=== PATIENT | male | born 1940 | race Caucasian/White ===

== ENCOUNTER 2018-02-03 05:54 | Day surgery (SDC) | payer OTHER ==
[2018-02-03] MEDS ORDERED: LIDOCAINE 1% 2 ML INJ ONE (06:03)
[2018-02-03] MEDS ORDERED: ceFAZolin 2 GM/DEXTROSE 100 ML IV ONE (06:07)
[2018-02-03] MEDS ORDERED: LR 1,000 ML IV ONE (06:09)
[2018-02-03] MEDS ORDERED: LIDOCAINE 1% 2 ML INJ ID PRN (06:09)
[2018-02-03] MEDS ORDERED: ONDANSETRON 4 MG/2 ML VIAL ONE (06:30)
[2018-02-03] MEDS ORDERED: DEXAMETHASONE 4 MG/ML VIAL ONE (06:30)
[2018-02-03] MEDS ORDERED: LIDOCAINE 2% 100 MG/5 ML SYR ONE (06:30)
[2018-02-03] MEDS ORDERED: MIDAZOLAM 2 MG/2 ML VIAL ONE (06:30)
[2018-02-03] MEDS ORDERED: PROPOFOL/EMULSION 500 MG/50 ML BOTTLE IV ONE (06:31)
[2018-02-03] MEDS ORDERED: PROPOFOL 200 MG/20 ML VIAL ONE (06:31)
[2018-02-03] MEDS ORDERED: fentaNYL 100 MCG/2 ML INJ ONE ×2 (06:31→08:57)
[2018-02-03] MEDS ORDERED: LR 500 ML IV PRN (06:46)
[2018-02-03] MEDS ORDERED: NALOXONE HCL 0.4 MG/ML INJ IVP PRN (06:46)
[2018-02-03] MEDS ORDERED: ONDANSETRON 4 MG/2 ML VIAL IVP PRN (06:46)
[2018-02-03] MEDS ORDERED: HYDROmorphONE/DILAUDID 2 MG/ML INJ IVP PRN (06:46)
[2018-02-03] MEDS ORDERED: HYDROCODONE/APAP 5/325 TAB PO PRN (06:46)
[2018-02-03] MEDS ORDERED: PROMETHAZINE HCL 25 MG/ML INJ IVP PRN (06:46)
[2018-02-03] MEDS ORDERED: PHENYLEPHRINE HCL 100 MCG/ML SYR IVP PRN (06:46)
[2018-02-03] MEDS ORDERED: fentaNYL 100 MCG/2 ML INJ IVP PRN (06:46)
[2018-02-03] MEDS ORDERED: THROMBIN (BOVINE) 5,000 UNIT VIAL TP ONE (07:01)
[2018-02-03] MEDS ORDERED: CALCIUM CHLORIDE 1 GM/10 ML INJ ONE (07:01)
[2018-02-03] MEDS ORDERED: BUPIVACAINE 0.5% 30 ML SDV ONE (07:01)
[2018-02-03] MEDS ORDERED: POLYMYXIN B SULFATE 500,000 UNIT/10 ML SYR IRR ONE (07:02)
--- NOTE | 2018-02-03 07:03 | PDANEPAE ---
ANE Past Medical History - Cardiovascular History Hx Hypertension: No Hx Arrhythmias: No Hx Chest Pain: No Hx Coronary Artery / Peripheral Vascular Disease: No Hx CHF / Valvular Disease: No Hx Palpitations: No Cardiovascular History Comment: DYSLIPIDEMIA - Pulmonary History Hx COPD: No Hx Asthma/Reactive Airway Disease: No Hx Recent Upper Respiratory Infection: No Hx Oxygen in Use at Home: No Hx Sleep Apnea: No Sleep Apnea Screening Result - Last Documented: Negative - Neurologic History Hx Cerebrovascular Accident: No Hx Seizures: No Hx Dementia: No - Endocrine History Hx Diabetes: No - Renal History Hx Renal Disorders: No - Liver History Hx Hepatic Disorders: No - Neurological & Psychiatric Hx Hx Neurological and Psychiatric Disorders: No - Cancer History Hx Cancer: No - Congenital Disorder History Hx Congenital Disorders: No - GI History Hx Gastrointestinal Disorders: No - Other Health History Other Health History: NEG. ALLERGY TO SOAP - RASHES IN PAST - Chronic Pain History Chronic Pain: No (L FOOT FOR YRS) - Surgical History Prior Surgeries: COLONOSCOPIES ANE Review of Systems Review of Systems: - Exercise capacity METS (RN): 5 METS ANE Patient History - Allergies Allergies/Adverse Reactions: latex [Latex] Allergy (Verified 02/03/18 06:25) RESP DISTRESS soap Allergy (Verified 02/03/18 06:25) Rash - Home Medications Home Medications: Aspirin [Aspirin 81mg (*)] 81 mg PO DAILY 03/10/16 [Last Taken 01/29/18] Atorvastatin Calcium [Lipitor 40 mg (*)] 40 mg PO 03/10/16 [Last Taken 02/02/18 19:00] Vitamin D3 1,000 iunits PO DAILY 02/03/18 [Last Taken 02/02/18 19:00] - NPO status NPO Since - Liquids (Date): 02/02/18 NPO Since - Liquids (Time): 03:00 NPO Since - Solids (Date): 02/02/18 NPO Since - Solids (Time): 19:00 - Smoking Hx Smoking Status: Former smoker ANE Labs/Vital Signs - Vital Signs Blood Pressure: 134/85 Heart Rate: 51 Respiratory Rate: 16 O2 Sat (%): 93 Height: 185.42 cm Weight: 81.647 kg ANE Physical Exam - Airway Neck exam: FROM Mallampati Score: Class 1 Mouth exam: normal dental/mouth exam - Pulmonary Pulmonary: no respiratory distress, no rales or rhonchi, clear to auscultation - Cardiovascular Cardiovascular: regular rate and rhythym, no murmur, rub, or gallop - ASA Status ASA Status: II ANE Anesthesia Plan Anesthesia Plan: general endotracheal anesthesia, MAC
--- NOTE | 2018-02-03 07:16 | PDHPUP ---
History & Physical Update H&P update statement: This history and physical update is based on an assessment of the patient which was completed after admission or registration (within 24 hours), but prior to the surgery/procedure. H&P update: H&P reviewed & patient examined, no change in patient's condition since H&P completed
[2018-02-03] MEDS ORDERED: BUPIVACAINE 0.25% 30 ML SDV ONE (07:34)
[2018-02-03] MEDS ORDERED: EPINEPHrine 1 MG/ML INJ ONE (07:34)
--- NOTE | 2018-02-03 08:22 | POSTOPPROG ---
Post Op Note Date of Operation: 02/03/18 Surgeon: Stephen More Butcher Fish: none Anesthesiologist: Emelina Anesthesia: IV Sedation Pre-op Diagnosis: anterior tibial tendinosis left Post-op Diagnosis: same Indication: pain Procedure: percutaneous tenotomy and PRP left Findings: none Inf/Abcess present in the surg proc area at time of surgery?: No Depth: Superfical (Skin SQ) EBL: Minimal Total fluids administered: 20cc 9/1 .25% marcaine plain and with epi Complications: none Drains: Other (none)
--- NOTE | 2018-02-03 09:02 | POSTANESTH ---
Post Anesthetic Evaluation Cardiovascular Status: Normal, Stable Respiratory Status: Normal, Stable Level of Consciousness/Mental Status: Can Participate in Eval Pain Control: Adequate, Prn Tx Ordered Nausea/Vomiting Control: Adequate, Prn Tx Ordered
[2018-02-03] MEDS ORDERED: HYDROCODONE/APAP 5/325 TAB ONE (09:25)
[2018-02-03 11:00] VITALS: BP 116/63
--- NOTE | 2018-02-03 11:58 | GOP ---
DATE OF OPERATION: 02/03/2018 SURGEON: Stephen More DPM LABORER: None. ANESTHESIA: Local with MAC. ANESTHESIOLOGIST: Tim Tarango MD. PREOPERATIVE DIAGNOSIS: Anterior tibial tendinosis with partial tearing. POSTOPERATIVE DIAGNOSIS: Anterior tibial tendinosis with partial tearing. PROCEDURE PERFORMED: 1. Percutaneous debridement and fasciotomy, left anterior tibial tendon. 2. Platelet-rich plasma injection, left anterior tibial tendon. FINDINGS: ESTIMATED BLOOD LOSS: Minimal. DESCRIPTION OF PROCEDURE: The patient presented to [facility] and was cleared for the intended procedure. Patient was taken to the operating room and placed on the table in supine positi on. IV sedation was started per the anesthesia department. Foot was anesthetized in an infiltrative nerve block fashion. Foot was prepped, scrubbed, and draped in the usual sterile fashion. Followin g exsanguination by elevation of Esmarch bandage, pneumatic ankle tourniquet was inflated to 225 mmHg . At this time, attention was directed to the anterior medial aspect of the left foot where the obvi ous soft tissue swelling along the course of the anterior tibial tendon was noted. At this time util izing ultrasonic evaluation, there were noted to be areas of hypoechoic tissue inside of the tendon. It was decided that the percutaneous debridement and fasciotomy would be performed. A vertical stab incision was made over the level of the tendon and this allowed for an insertion of the 10 Jet probe . Again, under ultrasound evaluation the hypoechoic areas were thoroughly debrided. 1000 cc of flui d was utilized over the course of approximately 9 minutes of debridement. Upon completion of this, t he instrumentation was removed. The incision was closed with a single stitch of 5-0 nylon. Upon com pletion of this, the previously debrided tendon insertion sites were then infiltrated with [address] atelet-rich plasma under ultrasound guidance to ensure adequate placement of the injection. The area was then dressed with Betadine-soaked Adaptics, 4 x 4's, Usha, and Coban. The patient was taken to recovery room with vital signs stable, vascular supply intact digits 1-5 bilaterally after the pneum atic ankle tourniquet had been released for a total tourniquet time of 20 minutes. PATHOLOGY: None. HEMOSTASIS: PAT at 225 mmHg by 20 minutes. MATERIALS: None. INJECTABLES: 20 cc 9:1 ratio 0.25% Marcaine plain, 0.25% Marcaine with epi preoperatively, 4 cc plat elet-rich plasma postoperatively. COMPLICATIONS: None. /[id number]/MODL
== END 2018-02-03 11:01 | disposition home or self-care (01) ==
LOC: FSGY 05:54
PROVIDERS: ATTEND Podiatrist Primary Podiatric Medicine
PROC: 3E023GC Introduction of Other Therapeutic Substance into Muscle, Percutaneous Approach (ICD-10-PCS; 2018-02-03)
PROC: 0LDT0ZZ Extraction of Left Ankle Tendon, Open Approach (ICD-10-PCS; principal; 2018-02-03 07:15)
PROC: 0JDP3ZZ Extraction of Left Lower Leg Subcutaneous Tissue and Fascia, Percutaneous Approach (ICD-10-PCS; 2018-02-03 07:15)
DX: M76.812 Anterior tibial syndrome, left leg (principal); E78.5 Hyperlipidemia, unspecified; Z79.82 Long term (current) use of aspirin; Z87.891 Personal history of nicotine dependence
CPT/HCPCS: 0232T; 27899; J0171; J0690; J1100; J2001; J2250; J2405; J2704; J3010

== ENCOUNTER 2018-05-27 16:07 | Emergency (ER) | payer OTHER ==
[2018-05-27 16:15] VITALS: BP 133/85
== END 2018-05-27 17:02 | disposition left against medical advice (07) ==
DX: Z53.21 Procedure and treatment not carried out due to patient leaving prior to being seen by health care provider (principal)

== ENCOUNTER → 2018-05-31 | Outpatient (CLI) | payer OTHER | LOC: CIMAGING 12:16 | PROVIDERS: ATTEND Internal Medicine | DX: I70.0 Atherosclerosis of aorta (principal); G47.00 Insomnia, unspecified; F33.1 Major depressive disorder, recurrent, moderate | CPT/HCPCS: 76705-PO ==